=== PATIENT | female | born 1970 ===

== ENCOUNTER 2017-06-25 19:14 | Emergency (ER) | payer OTHER ==
[2017-06-25 19:52] VITALS: BP 110/77; PULSE 89; RESP 16; TEMP 98.3; O2SAT 97
[2017-06-25] MEDS ORDERED: Albuterol 0.083% Inhal Sol (2.5 mg/3 mL) UD IH STA (20:37)
[2017-06-25] MEDS ORDERED: Albuterol 0.083% Inhal Sol (2.5 mg/3 mL) UD ONE (20:42)
--- NOTE | 2017-06-25 21:04 | C.PDOC ---
History Of Present Illness 46 year old female, with no significant PMHx, presents to the ED for evaluation cold symptoms which began around 10 days ago associated with nasal congestion, sore throat, and productive cough with clear sputum. Patient also notes some chest tightness with cough for the past few days. Otherwise, pt denies fever, chills, headache, dizziness, drooling, dysphagia, dyspnea, shortness of breath, wheezing, palpitation, diaphoresis, abd. pain, N/V/D, back pain, UTI sx. Ambulate to Ed for evaluation, not in any apparent distress. Time Seen by Provider: 06/25/17 19:49 Chief Complaint (Nursing): ENT Problem History Per: Patient History/Exam Limitations: None Onset/Duration Of Symptoms: Days (10) Current Symptoms Are (Timing): Still Present Past Medical History Reviewed: Historical Data, Nursing Documentation, Vital Signs Vital Signs: Last Vital Signs Temp 98.3 F 06/25/17 19:35 Pulse 89 06/25/17 19:35 Resp 16 06/25/17 19:35 BP 110/77 06/25/17 19:35 Pulse Ox 97 06/25/17 21:30 - Medical History PMH: No Chronic Diseases Surgical History: No Surg Hx Family History: States: Unknown Family Hx - Social History Hx Alcohol Use: No Hx Substance Use: No - Immunization History Hx Tetanus Toxoid Vaccination: No Hx Influenza Vaccination: No Hx Pneumococcal Vaccination: No Review Of Systems Constitutional: Negative for: Fever, Chills ENT: Positive for: Nose Congestion, Throat Pain Respiratory: Positive for: Cough, Sputum (clear ). Negative for: Shortness of Breath, Wheezing Physical Exam - Physical Exam Appears: Non-toxic, No Acute Distress Skin: Normal Color, Warm, Dry Eye(s): bilateral: PERRL Ear(s): Bilateral: Normal Nose: Discharge (scant rhinorrhea ), Other (nasal congestion) Oral Mucosa: Moist Throat: Erythema (mild ), No Exudate Neck: Supple Chest: Symmetrical, No Deformity, No Tenderness Cardiovascular: Rhythm Regular, No Friction Rub, No Murmur, No JVD Respiratory: No Decreased Breath Sounds, No Accessory Muscle Use, No Rales, No Rhonchi, No Stridor, Wheezing (scattered, right basilar ) Gastrointestinal/Abdominal: Soft, No Tenderness Extremity: Normal ROM, Capillary Refill (less than 2 seconds ) Neurological/Psych: Oriented x3, Normal Speech, Normal Cognition Gait: Steady ED Course And Treatment O2 Sat by Pulse Oximetry: 97 (on RA) Pulse Ox Interpretation: Normal - Radiology CXR: Interpreted by Me, Viewed By Me CXR Interpretation: Yes: No Acute Disease Progress Note: EKG, CXR ordered and reviewed. Patient received Albuterol INH, Promethazine/codeine PO, Tessalon Perles PO, Zithromax PO, and prednisone PO. On re-evaluation, pt is afebrile, hemodynamicaly stable. Non-toxic. PulsOEx 97 % RA. neck: Supple, (-) JVD, (-) carotid bruits B/L. Lungs: CTA B/L, BS equal B/L. CVS: (+)S1S2, reg. ABd: benign. Imaging review and appears noraml. Pt has clinical finidngs c/w bronshitis, wheezing. Pt advised. ref to f/u with PMD in 2-3 days for re-eval. return if any new changes. Disposition Counseled Patient/Family Regarding: Studies Performed, Diagnosis, Need For Followup, Rx Given - Disposition Referrals: [facility] [Outside] Disposition: HOME/ ROUTINE Disposition Time: 21:03 Condition: STABLE Additional Instructions: Encourage fluids Take medication as prescribed Follow up with PMD in 2-3 days for re-evaluation. Return to ED if any worsening or new changes. Prescriptions: Albuterol HFA [Ventolin HFA 90 mcg/actuation (8 g)] 1 puff IH Q6 #1 inhaler Azithromycin 1 tab PO DAILY #4 tab Prednisone [Deltasone] 40 mg PO DAILY #6 tablet Promethazine/Codeine [Phenergan/Codeine Oral Syrup] 5 ml PO Q6 #60 ml Instructions: Acute Bronchitis (ED) Forms: [employer] (Ecuadorean) Print Language: PARAGUAYAN - Clinical Impression Clinical Impression: Bronchitis - PA / CLERICAL SUPERVISOR / Resident Statement MD/DO has reviewed & agrees with the documentation as recorded. - Scribe Statement The provider has reviewed the documentation as recorded by the Scribe (Lauren Odonnell) All medical record entries made by the Scribe were at my direction and personally dictated by me. I have reviewed the chart and agree that the record accurately reflects my personal performance of the history, physical exam, medical decision making, and the department course for this patient. I have also personally directed, reviewed, and agree with the discharge instructions and disposition.
[2017-06-25] MEDS ORDERED: Promethazine/Cod 6.25mg-10mg/5ml Syr UD PO STA (21:06)
[2017-06-25] MEDS ORDERED: Promethazine/Cod 6.25mg-10mg/5ml Syr UD ONE (21:10)
--- NOTE | 2017-06-26 14:19 | RAD ---
HISTORY: Cough COMPARISON: Comparison chest dated 08/04/2012 TECHNIQUE: Chest PA and lateral FINDINGS: LUNGS: The interstitial markings are slightly increased and coarsened ; rule out sequela of reactive/ inflammatory airway disease or viral illness. There may also be some minimal left basilar atelectasis. Re- demonstrated is a tiny nodular density left lateral mid lung field that may represent granuloma unchanged from prior study. PLEURA: No significant pleural effusion identified. No pneumothorax apparent. CARDIOVASCULAR: Heart size is borderline/mildly enlarged OSSEOUS STRUCTURES: No significant abnormalities. VISUALIZED UPPER ABDOMEN: Normal. OTHER FINDINGS: None. IMPRESSION: Slightly increased coarse interstitial markings which could be secondary to reactive/inflammatory airway disease. Suspect minimal left basilar atelectasis. No change suspected small granuloma left lateral mid lung field
== END 2017-06-25 21:39 | disposition home or self-care (01) ==
LOC: C.ER 19:14
DX: J40 Bronchitis, not specified as acute or chronic (principal)